=== PATIENT | male | born 1990 | race Caucasian/White ===

== ENCOUNTER 2017-07-05 22:53 | Emergency (ER) | payer OTHER, SELFPAY ==
[~2017-07-05] VITALS: Ht 165.1 cm; Wt 74.9 kg
[2017-07-05 22:55] VITALS: BP 136/90
== END 2017-07-05 23:26 | disposition home or self-care (01) ==
LOC: ED 23:20
DX: K02.9 Dental caries, unspecified (principal); F17.210 Nicotine dependence, cigarettes, uncomplicated
CPT/HCPCS: 99283

== ENCOUNTER 2018-08-13 17:52 | Emergency (ER) | payer OTHER ==
[~2018-08-13] VITALS: Ht 165.1 cm; Wt 69.0 kg
[~2018-08-13 17:52] MED LIST: HYDR-3240 PO
[2018-08-13 20:09] VITALS: BP 122/70
== END 2018-08-13 21:13 | disposition home or self-care (01) ==
LOC: ED 18:13
DX: K56.51 Intestinal adhesions [bands], with partial obstruction (principal)
CPT/HCPCS: 74176; 99284

== ENCOUNTER 2019-05-18 17:59 | Emergency (ER) | payer SELFPAY ==
[~2019-05-18] VITALS: Ht 165.1 cm; Wt 73.9 kg
[2019-05-18 18:01] VITALS: BP 156/95
--- NOTE | 2019-05-18 18:56 | NUR ---
ASSUMING CARE OF PT. AT THIS TIME.
[2019-05-18] MEDS ORDERED: ONDANSETRON ODT 4 MG ONE (18:57)
[2019-05-18] MEDS ORDERED: OXYcodone/APAP 5/325MG TABLET ONE (18:57)
[2019-05-18] MEDS ORDERED: OXYcodone/APAP 5/325MG TABLET PO ONE (19:00)
[2019-05-18] MEDS ORDERED: ONDANSETRON ODT 4 MG PO ONE (19:00)
== END 2019-05-18 19:15 | disposition home or self-care (01) ==
LOC: ED 19:09
DX: K08.89 Other specified disorders of teeth and supporting structures (principal); R51 Headache; R11.0 Nausea
CPT/HCPCS: 99283; Q0162

== ENCOUNTER 2019-10-24 19:47 | Emergency (ER) | payer MEDICAID ==
[~2019-10-24] VITALS: Ht 165.1 cm; Wt 74.0 kg
[2019-10-24] MEDS ORDERED: OXYcodone/APAP 5/325MG TABLET ONE (20:35)
--- NOTE | 2019-10-24 20:38 | NUR ---
PT MEDICATED ORDERED, STATED GF WILL PROVIDE RIDE HOME.
[2019-10-24] MEDS ORDERED: OXYcodone/APAP 5/325MG TABLET PO ONE (21:00)
--- NOTE | 2019-10-24 21:03 | NUR ---
REVIEWED DISCHARGE INSTRUCTIONS AND PRESCRIPTION X 1 W/ PT, VERBALIZED UNDERSTANDING TO INFORMATION PROVIDED INCLUDING DENTAL CARE, FOLLOW UP CARE, RETURN PRECAUTIONS AND PRECAUTIONS W/ NARCOTIC, DENIED QUESTIONS/CONCERNS. REVIEWED NARCOTIC CONSENT, SIGNED AND PLACED ON CHART. PT GF ARRIVED TO PROVIDE RIDE HOME, PT AMBULATED FROM ED W/ GF.
[2019-10-24 21:04] VITALS: BP 144/77
== END 2019-10-24 21:06 | disposition home or self-care (01) ==
LOC: ED 20:55
DX: K08.89 Other specified disorders of teeth and supporting structures (principal)
CPT/HCPCS: 99283

== ENCOUNTER 2020-06-12 17:43 | Emergency (ER) | payer MEDICAID ==
[~2020-06-12] VITALS: Ht 165.1 cm; Wt 75.8 kg
[2020-06-12 17:54] VITALS: BP 130/84
[2020-06-12] MEDS ORDERED: KETOROLAC 30 MG/1 ML ONE (18:18)
[2020-06-12] MEDS ORDERED: KETOROLAC 30 MG/1 ML IM ONE (18:30)
== END 2020-06-12 19:26 | disposition home or self-care (01) ==
LOC: ED 19:13
DX: M72.2 Plantar fascial fibromatosis (principal); F17.200 Nicotine dependence, unspecified, uncomplicated
CPT/HCPCS: 73630; 96372; 99283; J1885; 99284